=== PATIENT | male | born 1975 | race Caucasian/White ===

== ENCOUNTER → 2021-12-12 | Outpatient (CLI) | payer BC ==
[~2021-12-12] MED LIST: CLEOCIN HCL300 MG PO; CUBICIN 500 MG500 MG INJ; IBUPROFEN800 MG PO; INVANZ 1 GM VIAL1 GM IM; LORTAB 7.5-3251 EACH PO; NORCO 5-325 TA1 EACH PO; VISCOUS LIDOCAINE 2% PO
[2021-12-12 14:50] LABS: HEMOGLOBIN 15.9 gm/dl (14.0-17.5); RED BLOOD COUNT 5.44 M/UL (4.20-5.50); WHITE BLOOD COUNT 9.6 K/UL (4.5-11.0)
[2021-12-12 15:18] LABS: BUN/CREATININE RATIO 16 (0-10)
[2021-12-13 08:17] LABS: CORTISOL 6.1 ug/dL (.); SEX HORM BINDING GLOB, SERUM 31.7 nmol/L (16.5-55.9); THYROXINE (T4) 10.2 ug/dL (4.5-12.0); TRIIODOTHYRONINE (T3) 175 ng/dL (71-180); VITAMIN D, 25-HYDROXY 12.1 ng/mL (30.0-100.0)
[2021-12-13 09:16] LABS: HBSAG SCREEN Negative (Negative); HEP A AB, IGM Negative (Negative); HEP B CORE AB, IGM Negative (Negative); HEP C VIRUS AB <0.1 (0.0-0.9)
[2021-12-13 10:17] LABS: CREATININE, URINE 94.7 mg/dL (Not Estab.); MICROALB/CREAT RATIO <3 (0-29)
[2021-12-13 11:17] LABS: C-PEPTIDE, SERUM 4.1 ng/mL (1.1-4.4); INSULIN 11.4 uIU/mL (2.6-24.9)
[2021-12-14 14:12] LABS: IGF-1 161 ng/mL (81-263)
== END ==
LOC: LAB 12:34
PROVIDERS: Nurse Practitioner
DX: Z00.6 Encounter for examination for normal comparison and control in clinical research program (principal); Z01.89 Encounter for other specified special examinations; F19.10 Other psychoactive substance abuse, uncomplicated
CPT/HCPCS: 36415; 80053; 80061; 80074; 82043; 82533; 82570; 82607; 82728; 82746; 83036; 83520; 83540; 83735; 83970; 84270; 84436; 84443; 84480; 84681; 85027

== ENCOUNTER 2022-04-12 18:06 | Emergency (ER) | payer OTHER ==
[2022-04-12 19:18] LABS: HEMOGLOBIN 16.9 gm/dl (14.0-17.5); RED BLOOD COUNT 5.58 M/UL (4.20-5.50); WHITE BLOOD COUNT 12.1 K/UL (4.5-11.0)
[2022-04-12 19:40] LABS: BUN/CREATININE RATIO 16 (0-10)
[2022-04-13] MEDS ORDERED: DOXYCYCLINE HY100 MG PO (00:27)
== END 2022-04-13 00:50 | disposition home or self-care (01) ==
LOC: ER1 18:06
PROVIDERS: Nurse Practitioner
DX: L03.114 Cellulitis of left upper limb (principal); F17.210 Nicotine dependence, cigarettes, uncomplicated
CPT/HCPCS: 73100; 80053; 81001; 85025; 99283